=== PATIENT | female | born 1985 | race Caucasian/White ===

== ENCOUNTER 2023-05-16 20:23 | Emergency (ER) | payer OTHER, SELFPAY ==
[2023-05-16 20:36] VITALS: BP 129/85; PULSE 81; RESP 16; TEMP 36.8; O2SAT 99; BMI 27.3
[2023-05-16 21:17] LABS: Appearance Urine Cloudy (Clear); Bilirubin Urine Negative (Negative); Blood Urine 1+ (Negative); Color Urine Yellow (Yellow); Glucose Urine Negative (Negative); Ketones Urine Negative (Negative); Leukocyte Esterase Urine 1+ (Negative); Nitrite Urine Positive (Negative); Protein Urine Trace (Negative); Urobilinogen Urine 0.2 (0.2-1.0)
[2023-05-16 21:25] LABS: Bacteria Urine Moderate; RBC Urine 0-2 (0-2); WBC Urine 25-50 (0-5)
--- NOTE | 2023-05-16 21:47 | ED_ITS ---
HPI - General Adult General Chief complaint: Abdominal Pain Stated complaint: Lower abdomen and back pain radiating to legs Time Seen by Provider: 05/16/23 21:36 History of Present Illness HPI narrative: This 38-year-old female comes in reporting lower abdominal pain radiating into her low back. This began yesterday without any injury event or strenuous activity. She does report increased urinary frequency. She does not report any fevers. She is [place] speaking and her daughter is interpreting for her. Related Data Home Medications Medication Instructions Recorded Confirmed No Known Home Medications 05/16/23 05/16/23 Allergies Allergy/AdvReac Type Severity Reaction Status Date / Time No Known Drug Allergies Allergy Verified 05/16/23 20:41 Review of Systems Status of ROS: Reports: 10 or more systems reviewed and unremarkable except as noted in History and below Narrative: Constitutional: No fevers, no weight gain or loss. Eyes: No discharge. No vision changes. HENT: No congestion, no sore throat, no ear pain. Cardiovascular: No chest pain, no palpitations. Respiratory: No shortness of breath, no wheezes, no cough. Gastrointestinal: No vomiting, no diarrhea. Lower abdominal pain as described above. Genitourinary: Increased urinary frequency. Musculoskeletal: Normal range of motion. Skin: No rashes, no pruritis. Neurological: No dizziness, weakness, sensory change, speech change. Endo/Heme/Allergies: No bruising or bleeding. No polydipsia. Pysch: no suicidality, no anxiety, no insomnia. All other systems reviewed and are negative. Exam Narrative: Exam Narrative: Constitutional: Well-developed, well-nourished, no acute distress. HEENT: Normocephalic, atraumatic. Neck: Normal range of motion. Nontender. Supple. Heart: Regular. No murmurs. Normal rate. Intact distal pulses. Lungs: Clear to auscultation. No chest discomfort. No wheezes, rhonchi, or rales. Abdomen: Normal bowel sounds. Lower abdominal tenderness. No rebound tenderness. Genitalia: Deferred. Back: No midline tenderness. Normal range of motion. Extremities: Normal range of motion. No injury. Skin: Intact. No rash. Warm. No erythema or pallor. Neurologic: No altered sensation. No weakness. Alert and oriented. Psychiatric: No suicidality. No anxiety or depression. No insomnia. Nursing notes and vitals signs are reviewed. Const: Vital Signs, click to edit/add: Vital Signs - 24 hr 05/16/23 20:36 Temperature 98.2 F Pulse Rate [Pulse Oximeter] 81 Respiratory Rate 16 Blood Pressure [Ri ght Upper Arm] 129/85 Pulse Oximetry 99 Oxygen Delivery Me thod Room Air Course Vital Signs Vital signs: Initial Vital Signs Temperature 98.2 F 05/16/23 20:36 Temperature Source Temporal Artery Scan 05/16/23 20:36 Pulse Rate 81 05/16/23 20:36 Respiratory Rate 16 05/16/23 20:36 Blood Pressure 129/85 05/16/23 20:36 Blood Pressure Mean 99 05/16/23 20:36 Blood Pressure Position Sitting 05/16/23 20:36 Pulse Oximetry 99 05/16/23 20:36 Oxygen Delivery Method Room Air 05/16/23 20:36 Vital Signs Temperature 98.2 F 05/16/23 20:36 Pulse Rate 81 05/16/23 20:36 Respiratory Rate 16 05/16/23 20:36 Blood Pressure 129/85 05/16/23 20:36 Pulse Oximetry 99 05/16/23 20:36 Oxygen Delivery Method Room Air 05/16/23 20:36 Temperature 98.2 F 05/16/23 20:36 Pulse Rate 81 05/16/23 20:36 Respiratory Rate 16 05/16/23 20:36 Blood Pressure 129/85 05/16/23 20:36 Pulse Oximetry 99 05/16/23 20:36 Oxygen Delivery Method Room Air 05/16/23 20:36 Medical Decision Making MDM Narrative Medical decision making narrative: This patient comes in with lower abdominal pain and increased urinary frequency as described above. Urinalysis does show evidence of urinary tract infection. The patient did receive a prescription for Keflex from the [employer] [facility]. She is encouraged also to use [id number] medicines as needed and directed. Lab Data Labs: Lab Results 05/16/23 Range/Units 20:57 Urine Color Yellow (Yellow) Urine Appearance Cloudy A (Clear) Urine pH 6.0 (5.0-8.5) Ur Specific [place] 1.020 (1.000-1.030) Urine Protein Trace A (Negative) Urine Glucose (UA) Negative (Negative) Urine Ketones Negative (Negative) Urine Blood 1+ A (Negative) Urine Nitrite Positive A (Negative) Urine Bilirubin Negative (Negative) Urine Urobilinogen 0.2 (0.2-1.0) Ur Leukocyte Esterase 1+ A (Negative) Urine RBC 0-2 (0-2) Urine WBC 25-50 A (0-5) Ur Squamous Epith Cells None (None-Few) Urine Bacteria Moderate A (None) Discharge Plan Discharge Clinical Impression: Urinary tract infection Patient Disposition: Home w/ Parent or Adult Condition: Unchanged Additional Instructions: Take medication as prescribed. Use [id number] medicines also as needed and directed. Follow up with MD return if worsening. Prescriptions: No Action No Known Home Medications Stand Alone Forms: [employer] Info Instructions
== END 2023-05-16 22:07 | disposition home or self-care (01) ==
LOC: ED 21:59
PROVIDERS: Emergency Provider Emergency Medicine Emergency Medical Services; PCP Family Medicine
DX: N39.0 Urinary tract infection, site not specified (principal)
CPT/HCPCS: 81001; 87086; 87186; 99283; 99284